=== PATIENT | male | born 1945 | race Caucasian/White ===

== ENCOUNTER 2016-11-22 08:40 | Day surgery (SDC) | payer MEDICARE ==
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
--- OUTSIDE RECORDS SUMMARY | 2016-11-22 08:45 | XMS REPORT | Encounter Summary ---
:1945 Author Organization [employer] [place] [address] Care Team Providers Name Role Phone Unavailable Primary Care Provider Unavailable Reason for Visit Reason Comments Other Encounter Details Date Type Department Care Team Description 07/06/2016 Telephone [facility] Melinda Michelle, COA Other Ophthalmology [address] [facility] [address] [place] [address] [place] [address] Social History Tobacco Use Types Packs/Day Years Used Date Never Assessed Sex Assigned at Date Recorded Not on file as of this encounter Plan of Treatment Not on fileas of this encounter Visit Diagnoses Not on filein this encounter
--- OUTSIDE RECORDS SUMMARY | 2016-11-22 08:45 | XMS REPORT | Clinical Summary ---
:1945 Author Organization [employer] [place] [address] Care Team Providers Name Role Phone Unavailable Primary Care Provider Unavailable Source Comments This disclosure is being made pursuant to the [employer] program and maynot contain all information available regarding this patient.[facility] Allergies No Known Allergies Current Medications Be aware that medications may not be up to date as of this document. Alwaysverify current medications with the patient. Prescription Sig. Disp. Refills Start Date End Date Status omeprazole (PRILOSEC) 40 Take 40 mg by 05/06/2015 Active MG capsule mouth. lisinopril Take 20 mg by Active (PRINIVIL,ZESTRIL) 40 MG mouth. tablet atorvastatin (LIPITOR) 20 Take 20 mg by 12/28/2015 Active MG tablet mouth. amLODIPine (NORVASC) 10 MG Take 5 mg by Active tablet mouth. aspirin 81 MG EC tablet Take 81 mg by 06/11/2016 Active mouth. ALPRAZolam (XANAX) 1 MG Take by mouth. Active tablet Active Problems Not on file Social History Tobacco Use Types Packs/Day Years Used Date Never Assessed Sex Assigned at Date Recorded Not on file Last Filed Vital Signs Not on file Plan of Treatment Health Maintenance Due Date Last Done Comments Hepatitis C Screening 12/16/1963 Tetanus/Pertussis (1 - Tdap) 1964 Colonoscopy 12/16/1995 Well Adult Visit 12/16/1995 Zoster Vaccine 60+ 2005 Pneumococcal Low/Medium Risk 65+ (1 of 2 - PCV13) 2010 INFLUENZA IMMUNIZATION (#1) 2016 Results Not on filefrom Last 3 Months Insurance Payer Benefit Plan / Group Subscriber ID Type Phone Address MEDICARE MEDICARE A AND B [id number] [address] [place] [address] Home: [id number] [place] [phone] [address]
--- OUTSIDE RECORDS SUMMARY | 2016-11-22 08:45 | XMS REPORT | Encounter Summary ---
:1945 Author Organization [employer] [place] [address] Care Team Providers Name Role Phone Unavailable Primary Care Provider Unavailable Reason for Visit Reason Comments Other Encounter Details Date Type Department Care Team Description 07/31/2016 Telephone [facility] Melinda Michelle, COA Other Ophthalmology [address] [facility] [address] [place] [address] [place] [address] Social History Tobacco Use Types Packs/Day Years Used Date Never Assessed Sex Assigned at Date Recorded Not on file as of this encounter Plan of Treatment Not on fileas of this encounter Visit Diagnoses Not on filein this encounter
--- OUTSIDE RECORDS SUMMARY | 2016-11-22 08:46 | XMS REPORT | Encounter Summary ---
:1945 Author Organization [employer] [place] [address] Care Team Providers Name Role Phone Unavailable Primary Care Provider Unavailable Encounter Details Date Type Department Care Team Description 06/12/2016 Ophth Exam [facility] Maxi Arcos MD Senile nuclear Ophthalmology [address] sclerosis, bilateral [address] (Primary Dx) [place] [address] [place], [place] [id number] Social History Tobacco Use Types Packs/Day Years Used Date Never Assessed Sex Assigned at Date Recorded Not on file as of this encounter Progress Notes Maxi Arcos MD - 06/12/2016 3:32 PM CSTRight and left eye, has a visually significant cataract causing disabling visual symptoms. We reviewed the outpatient surgical procedure previously discussed in detail during the surgical counseling.Any questions were answered. We reviewed the risk, benefits and alternatives and they understand and accept the risk. They were offered the opportunity for postop drops or intravitreal injection of antibiotic and steroid. They would like intravitreal Tri-Moxi at the time of cataract surgery. They understand that ifthere is postop inflammation or suspicion of infection they will have to go on drops. They are a candidate for femto-second laser-assisted cataract surgery in the right eye. Additional risks, benefits, alternatives and costs reviewed with the patient before decision making. He declines femto-second laser-assisted cataract surgery. A pre-op history and physical was performed and recorded on the surgery center form. Please see the history and physical form for all the details. IOL selection: Today both eyes measured with the Lenstar. Axial length and keratometry were reviewed carefully. Schertz II formula was used with a target of zero and a lens implant was selected tohave the lowest degree of residual myopia. IOL selection for the right eye is a SN60WF with a power of 22.5. IOL selection for the left eye is a SN60WF with a power of 20.5. Send a copy of this note to Dr. 

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
--- OUTSIDE RECORDS SUMMARY | 2016-11-22 08:46 | XMS REPORT | Encounter Summary ---
:1945 Author Organization [employer] [place] [address] Care Team Providers Name Role Phone Unavailable Primary Care Provider Unavailable Encounter Details Date Type Department Care Team Description 06/22/2016 Ophth Exam [facility] Maxi Arcos MD Surgical aftercare, sense organs - Right Eye (Primary Dx); Ophthalmology [address] Pseudophakia - Right Eye; [address] Senile nuclear sclerosis, [place] [address] [place], [place] [id number] Social History Tobacco Use Types Packs/Day Years Used Date Never Assessed Sex Assigned at Date Recorded Not on file as of this encounter Progress Notes Maxi Arcos MD - 06/22/2016 10:36 AM CSTRight eye, first day status post cataract extraction [...] No swimming or hot tubs for one month. Follow up in 1 week. Return to office sooner for any problems. The pressure is elevated on the first postoperative day. I will release aqueous from the paracentesis. Procedure note: Topical proparacaine and topical 5% Betadine were applied to the operative eye. A sterile foreign body spud was used to release aqueous from the paracentesis. There was no complication to the procedure. There is no persistent leak. Proceed with planned cataract extraction and lens implantation next week. Comanagement details Comanaging Doctor: Dr. Terrazas Eye: Right eye Date of Surgery: 06/21/2016 Diagnosis: H25.11 Procedure: 64117 Date comanagement begins: 06/23/2016 in this encounter Plan of Treatment Not on fileas of this encounter Visit Diagnoses Diagnosis Surgical aftercare, sense organs - Right Eye - Primary Aftercare following surgery of the sense organs, NEC Pseudophakia - Right Eye Lens replaced by other means Senile nuclear sclerosis, left in this encounter
--- NOTE | 2016-11-22 10:11 | OR ---
Anesthesia Pre Procedure Eval Date of Service: 11/22/16 Pre Procedure Evaluation: Last Vital Signs Temp 36.2 C L 11/22/16 08:54 Pulse 52 L 11/22/16 08:54 Resp 18 11/22/16 08:54 BP 132/74 11/22/16 08:54 Pulse Ox 95 11/22/16 08:54 Anesthesia Pre Procedure Evaluation DATE: 11/22/2016 TIME: 1005 INDICATIONS: Spondylolisthesis and spinal stenosis, low back and bilateral radicular pain. PAST MEDICAL HISTORY: Mr. Sanchez has had a long history of low back and radicular pain that has been particularly bad over these past several months. He has had previous epidural steroid injections most recent one status difficult to ascertain but by his history I would anticipate 2 years ago. He has had good relief in the past and although he keeps very active and does put some stressors on his back, he has done very well to this point. History of GERD: No History of smoking: Yes Smoked prior to procedure: No Counseled on smoking day of procedure: S History of sleep apnea: No Treated for MELLY: Known Counseled on risks of untreated MELLY nonapplicable EXAM: Heart S1-S2 regular; lungs clear bilaterally ASSESSMENT OF MEDICAL STATUS: Appropriate candidate for epidural injection PLANNED PROCEDURE: Epidural injection L5-S1 Home Medications: HOME MEDICATIONS Alprazolam [Alprazolam Odt] 0.25 mg PO BID PRN 04/01/13 [Last Taken 04/01/13 19: 30] Amlodipine Besylate [Norvasc] 5 mg PO BID 04/01/13 [Last Taken 04/01/13 19:30] Lisinopril 20 mg PO BID 04/01/13 [Last Taken 04/01/13 19:30] Metoprolol Tartrate [Lopressor] 12.5 mg PO DAILY 04/01/13 [Last Taken 11/21/16 20:00] Simvastatin 10 mg PO DAILY 04/01/13 [Last Taken 04/01/13 19:30] Aspirin [Aspirin Chewable] 81 mg PO DAILY 09/15/14 [Last Taken Unknown]
[2016-11-22] MEDS ORDERED: IOPAMIDOL 20 ML VIAL IJ ONE (10:20)
[2016-11-22] MEDS ORDERED: LIDOCAINE HCL/PF 5 ML VIAL IJ ONE (10:20)
[2016-11-22] MEDS ORDERED: DEXAMETHASONE SOD PHOSPHATE 10 MG/ML VIAL IJ ONE (10:20)
--- NOTE | 2016-11-22 10:35 | OR ---
Anesthesia Procedure Note - Anesthesia Procedure Note Date of Service: 11/22/16 Narrative: Vital Signs - Last Taken Temp 36.2 C L 11/22/16 08:54 Pulse 55 L 11/22/16 10:20 Resp 18 11/22/16 10:20 BP 163/98 11/22/16 10:20 Pulse Ox 95 11/22/16 10:20 O2 Oxygen Delivery Method Room Air 11/22/16 10:30 ANESTHESIA PROCEDURE NOTE Date of Procedure: 11/22/2016 Time of procedure: 10:15. Performed by: Rasta Caballero CRNA, INBOUND CALL CENTER REPRESENTATIVE, MSN Ben Day Artist: Jewels Loo RN. Preprocedure diagnosis: Spondylolisthesis spinal stenosis low back and bilateral radicular pain. Post procedure diagnosis: Same. Procedure: Epidural Steroid Injection L5-S1. Indications: Bilateral radicular pain and low back pain. Findings: See below. Details of the procedure: After the MRI report and films were reviewed, the patient was interviewed where risks and the procedure were explained. The patient was then brought to over #3 and was placed in the prone position. The back was prepped with DuraPrep and draped in a sterile fashion. The lumbar area was identified under fluoroscopy and the L5-S1 space was localized with 1% lidocaine solution. The epidural space was identified using loss of resistance technique using a #20-gauge Touhy needle. 1 mL of Isovue was injected while the C-arm was positioned in the lateral orientation. The C-arm was then readjusted to an AP view and Isovue 200 1 milliliters was injected demonstrating a spread at the affected area. Dexamethasone 10mg and lidocaine 1 % 5 mL was injected, stylette was replaced and the epidural needle removed. A Band-Aid was then applied to the injection site, patient was placed in a supine position for 5 minutes then returned to ASU with good relief of pain, from a 3/ 10 to 0/10. EBL: None. Energy: 6.1 Seconds, 3.76 mGy Fluids: N/A. Specimen: N/A. Post procedure condition: The patient tolerated the procedure well. No complications were noted. Thank you for this consultation. Rasta Caballero CRNA, MSN, INBOUND CALL CENTER REPRESENTATIVE
[2016-11-22 11:04] VITALS: BP 132/66
== END 2016-11-22 08:41 | disposition home or self-care (01) ==
LOC: AMB 08:40
PROVIDERS: ATTEND Allergy & Immunology
PROC: 3E0S3BZ Introduction of Anesthetic Agent into Epidural Space, Percutaneous Approach (ICD-10-PCS; 2016-11-22)
PROC: 3E0S33Z Introduction of Anti-inflammatory into Epidural Space, Percutaneous Approach (ICD-10-PCS; principal; 2016-11-22 10:15)
DX: M43.16 Spondylolisthesis, lumbar region (principal); M48.06 Spinal stenosis, lumbar region; F17.200 Nicotine dependence, unspecified, uncomplicated; Z68.30 Body mass index [BMI] 30.0-30.9, adult